=== PATIENT | female | born 1955 | race Caucasian/White ===

== ENCOUNTER 2016-07-15 12:30 | Emergency (ER) | payer OTHER, BC ==
[~2016-07-15] VITALS: Ht 157.5 cm; Wt 72.0 kg
[~2016-07-15 12:30] MED LIST: BIOTCAP PO; CALCCHW25 PO; FERR65TA PO; HYDR-3580 PO; LEVO125T3 PO; OMEP20TA PO; RIVA10 PO; TRAZ100 PO; URSO250T2 PO; VENL-39 PO; VITA10002 PO; Z.0.COMMODE-3:1; Z.0.WALKERFRONT
[2016-07-15 12:32] VITALS: BP 156/76; PULSE 67; RESP 16; TEMP 97.8; O2SAT 98
--- NOTE | 2016-07-15 12:50 | PD ---
HPI Chief Complaint: Fall Time Seen by Provider: 12:49 Travel History International Travel<30 days: No Contact w/Intl Traveler<30days: No Traveled to known affect area: No History of Present Illness HPI 60-year-old female with history of primary biliary cirrhosis presents to emergency department for evaluation of left hip pain. Patient states she tripped and fell over wires in the OR. Landing on her left hip. Patient has history of left hip replacement. States she was able to get herself up after a few minutes. Denies any alterations in sensation. She did not hit her head or lose consciousness. She has no other symptoms to report. PFSH Past Medical History Arthritis: Yes Cancer: No Cardiovascular Problems: No Diabetes: No Endocrine: Yes Genitourinary: No Hepatitis: No Hiatal Hernia: No Immune Disorder: No Musculoskeletal: Yes (arthritis) Neurologic: No Psychiatric: No Respiratory: No Thyroid Disease: Yes (HYPOTHYROID) ?: Not Past Surgical History Abdominal Surgery: Yes (diagnostic laparoscopy) AICD: No Gynecologic Surgery: Yes (tubal ligation) Joint Replacement: No Pacemaker: No Social History Tobacco Use: No Substance Use: No Allergies-Medications (Allergen,Severity, Reaction): Coded Allergies: Ursodiol (Verified Allergy, Severe, rash, 07/15/16) ALLERGIC TO GENERIC FORM OF PRISCILA, BUT TAKES NAME BRAND PRISCILA AT HOME Wellbutrin (Verified Allergy, Intermediate, hives, 07/15/16) Reported Meds & Prescriptions Reported Meds & Active Scripts Active Review of Systems Except as stated in HPI: all other systems reviewed are Neg Physical Exam Narrative GENERAL: Well-nourished, well-developed female patient, ambulatory and in no acute distress SKIN: Warm and dry. HEAD: Normocephalic. EYES: No scleral icterus. No injection or drainage. NECK: Supple, trachea midline. No JVD or lymphadenopathy. CARDIOVASCULAR: Regular rate and rhythm without murmurs, gallops, or rubs. RESPIRATORY: Breath sounds equal bilaterally. No accessory muscle use. MUSCULOSKELETAL: No cyanosis, or edema. No shortening or rotation of the lower extremities. Distal pulses are palpable. No deformities. BACK: Nontender without obvious deformity. No CVA tenderness. Data Data Last Documented VS Vital Signs Date Time Temp Pulse Resp B/P Pulse Ox O2 Delivery O2 Flow Rate FiO2 07/15/16 12:32 97.8 67 16 156/76 98 Room Air Orders Hip, Uni(Ap&Lat) W Ap Pelvis (07/15/16 ) MDM Medical Decision Making Medical Screen Exam Complete: Yes Emergency Medical Condition: Yes Medical Record Reviewed: Yes Differential Diagnosis Dislocation versus contusion versus fracture versus sprain Narrative Course 60-year-old female presents to the emergency department for evaluation of left hip pain following a fall. X-ray imaging is without acute bony abnormality. Patient does not want any pain control this time. She is requesting to take ibuprofen [id number] at home. She is advised to follow-up with her primary care provider and return immediately with any acute worsening of symptoms. Diagnosis Primary Impression: Left hip pain Additional Impressions: Contusion of hip, left Low back strain Qualified Code: S39.012A - Low back strain, initial encounter Referrals: Primary Care Physician Patient Instructions: General Instructions, Hip Contusion (ED) Departure Forms: Tests/Procedures, Work Release Enter return to work date: Jul 16, 2016 Additional Instructions: Ice and rest the affected area Follow-up the primary care provider Seek orthopedic evaluation if symptoms persist Return immediately with any acute worsening of symptoms Med/Other Pt SpecificInfo: Prescription(s) given Disposition: 01 DISCHARGE HOME Condition: Stable Marisol McclureP Jul 15, 2016 12:50
--- NOTE | 2016-07-15 13:13 | RADRPT ---
EXAM DATE/TIME: 07/15/2016 13:12 [place] COMPARISON: HIP LEFT (AP&LAT 2/3VWS) WO AP PELVIS, February 11, 2016, 8:18. INDICATIONS : Left hip pain post fall at work. MEDICAL HISTORY : None. SURGICAL HISTORY : Left total hip in 11/22 ENCOUNTER: Initial ACUITY: 1 day PAIN SCORE: 8/10 LOCATION: Left hip FINDINGS: The bony pelvis is intact. No subluxation of either hip. On the left, there is a bipolar hip arthropl asty that appears normally aligned. No evidence of hardware failure or loosening. Moderate to severe right hip osteoarthritis noted and with chronic cam-type impingement changes. CONCLUSION: 1. Intact pelvis. 2. Radiographic appearance of the left bipolar hip arthroplasty within normal limits. No fracture, vincent bluxation or evidence of hardware failure/loosening. 3. Moderate to severe right hip osteoarthritis. Jarek Mcguire MD on July 15, 2016 at 13:10 Board Certified Radiologist. This report was verified electronically.
== END 2016-07-15 14:08 | disposition home or self-care (01) ==
LOC: NEPB 12:30
DX: M25.552 Pain in left hip (principal); K74.3 Primary biliary cirrhosis; S70.00XA Contusion of unspecified hip, initial encounter; S39.012A Strain of muscle, fascia and tendon of lower back, initial encounter; W18.09XA Striking against other object with subsequent fall, initial encounter
CPT/HCPCS: 73502; 99284

== ENCOUNTER 2018-01-27 09:00 | Inpatient (IN) ==
[2018-02-01] MEDS ORDERED: Metoprolol Tartrate 25 MG Tablet PO ONE (09:00)
[2018-02-01] MEDS ORDERED: Chlorhexidine Gluconate 2% 1 Pack (2 Cloths) TOPICAL ONE (09:00)
[2018-02-01] MEDS ORDERED: Sodium Chlor 0.9% Inj 500 ML IV.CONT ONE (09:00)
[2018-02-01] MEDS ORDERED: Sodium Chlor 0.9% Inj 40 ML, Bupivacaine Liposo PF 1.3% Inj 20 ML P-ARTICULR SCH ×2 (09:15)
[2018-02-01] MEDS ORDERED: Chlorhexidine 4% Topical 120 APPLIC/120 ML Bottle TOPICAL SCH (09:15)
[2018-02-01] MEDS ORDERED: Propofol Inj 500 MG/50 ML Vial ONE (09:47)
[2018-02-01] MEDS ORDERED: fentaNYL Citrate Inj 100 MCG/2 ML Ampul ONE (09:54)
[2018-02-01] MEDS ORDERED: Tetracaine PF 1% Inj 20 MG/2 ML Ampul ONE (09:56)
[2018-02-01] MEDS ORDERED: Bupivacaine/Dextrose 0.75% Inj 2 ML Ampul ONE (09:56)
[2018-02-01] MEDS ORDERED: ceFAZolin 2 GM Premix Inj 2 GM/50 ML PIGGYBACK IV.SIG SCH (10:00)
[2018-02-01] MEDS ORDERED: SODIUM CHLOR 0.9% IV.SIG SCH (10:00)
[2018-02-01] MEDS ORDERED: TRANEXAMIC ACID IV.SIG SCH (10:00)
[2018-02-01] MEDS ORDERED: Vancomycin Inj 1,000 MG in Sodium Chlor 0.9% Inj 250 ML IV.SIG SCH (10:00)
[2018-02-01] MEDS ORDERED: Bupivacaine/Epinephrine Inj 0.25% 50 ML Vial ONE (10:06)
[2018-02-01] MEDS ORDERED: Phenylephrine/NS 1000 MCG/10ML Syringe IV.PUSH ONE (10:42)
[2018-02-01] MEDS ORDERED: Bisacodyl 10 MG Supp RECTAL PRN (12:40)
[2018-02-01] MEDS ORDERED: Temazepam 15 MG Capsule PO PRN (12:40)
[2018-02-01] MEDS ORDERED: Morphine Inj 4 MG/ML Vial IV.PUSH PRN (12:40)
--- NOTE | 2018-02-01 12:40 | P.OP ---
- Preoperative Diagnosis (1) Osteoarthritis of right hip - Postoperative Diagnosis (1) Osteoarthritis of right hip Date of procedure: 02/01/18 Procedure: Right total hip replacement arthroplasty, direct anterior exposure Surgeon: Sonido Bland MD Agent: LEEANNE Sierra Operation and Findings: EBL: 500 cc INDICATION: This patient presents with significant hip pain related to osteoarthritis of the right hip. This patient has had a previous left total hip replacement for the same degenerative condition and has done well.. Despite extensive conservative care this patient continues to be painful and now presents for surgical treatment. NOTE: Gita Sierra PA-C was present for the entire surgical procedure as my machinist first class. In my medical opinion her skill and care was necessary for the proper management of this patient. COMPONENTS: COMPANY: [employer] CUP: [place], 50 mm, sector series, gription surface LINER: Altrx 32 mm, neutral STEM: [place], size 11, standard offset, hydroxyapatite-coated HEAD: 32 mm, ceramics, +5, 12/14 taper PROCEDURE: This patient was brought to the operating room and anesthetized in the supine position and positioned on the fracture table with both legs held extended. The right hip and leg was scrubbed with alcohol followed by Hibiclens followed by ChloraPrep and draped sterilely. Antibiotics were given within routine time window and a timeout was done. A 4 inch incision was made starting 2 cm distal and 2 cm lateral to the anterior superior iliac spine. The fascia jarvis was opened longitudinally. The interval between the fascia jarvis and the rectus was opened down to the capsule of the hip joint. Retractors were positioned allowing good visualization of the capsule. This was opened longitudinally and flaps were created. Stay sutures were utilized. Exposure was excellent. The neck was cut at the proper location using fluoroscopy as a guide. The head was removed. Deep retractors were positioned allowing good visualization of the acetabulum. Acetabulum was deepened down to the floor starting with a proper size reamer and reaming up to 49 mm. A trial was utilized. Fluoroscopy was used to check position and confirmed satisfactory alignment. The rim was reamed with a 50 mm reamer and the final cup was positioned in approximately 20 of anteversion and 40-45 of abduction. Position was satisfactory. A single hole eliminator was positioned followed by the final liner. The lifting hook was utilized. The leg was dropped to the floor, maximally externally rotated and brought across the midline. Retractors were positioned. A box osteotome was utilized followed by progressive broaching to the proper stem size. Trial reduction showed excellent alignment and fit. With 60 of external rotation the leg was dropped to the floor without evidence of anterior subluxation. The wound was irrigated. The final stem was inserted and was found to be very stable. The final reduction using the final head. Stability was as previously noted. Intraoperative x-rays were taken. The wound was irrigated copiously. Hemostasis was controlled. Local anesthesia was utilized. The capsule was repaired with #2 Tycron sutures. The fascia jarvis was repaired with running 0 PDS on a loop. Subcutaneous tissue was approximated with 2-0 Vicryl and skin with running intradermal 3-0 Vicryl followed by Steri-Strips. A sterile dressing was applied. The patient was awakened and taken to the recovery room in satisfactory condition. FINDINGS: There was severe osteoarthritis of the right hip. Periarticular synovitis was also noted. The final solution appeared excellent. There is no complication appreciated
[2018-02-01] MEDS ORDERED: Post-op Orders (for Pharmacy) OTHER STA (13:03)
--- NOTE | 2018-02-01 19:55 | XR ---
EXAM DATE: 02/01/2018 12:00 AM EDT AGE/SEX: 62 years / Female INDICATIONS: placement of total right hip in or. CLINICAL DATA: This is the patient's initial encounter. Patient reports that signs and symptoms have been present for 1 day and indicates a pain score of Nonresponsive. MEDICAL/SURGICAL HISTORY: None. None. COMPARISON: No prior exams available for comparison. FINDINGS: 3 images of the right hip recorded digitally in the operating room using C-arm during total hip arthr oplasty. CONCLUSION: Intraoperative images. Electronically signed by: Jose D Dent MD 02/01/2018 7:54 PM EDT
[2018-02-01] MEDS ORDERED: traZODone 50 MG Tablet PO SCH (21:00)
[2018-02-01] MEDS: Multivitamin/Minerals Therapeutic Tablet PO SCH (21:11)
[2018-02-01] MEDS: Senna/Docusate Sodium 8.6/50 MG Tablet PO SCH (21:11)
--- NOTE | 2018-02-01 22:20 | P.DS ---
Date of admission: 02/01/18 07:51 Primary care physician: Fiorella Colón Attending physician on discharge: Sonido Bland Anticipated date of discharge: 02/02/18 DS: Diagnosis - Discharge Diagnosis (1) Osteoarthritis of right hip Status: Acute DS: Medications - Discharge Medications Prescriptions: aspirin 81 mg PO BID #60 tab hydrocodone-acetaminophen 1 tab PO Q4H PRN #42 tab PRN Reason: Acute Pain DS: Summary Hospital Course: Surgical treatment was performed on the day of admission without complication. The patient recovered well in PACU and was transferred to the orthopedic floor. IV and oral medications were supplied. The patient was compliant with physical therapy and all total hip precautions. After 1 day she was found to be stable and discharged to a ____. She was encouraged to continue physical therapy, to elevate the operative limb and ice it 2-3 times daily, and to pursue a high fiber diet. She was given prescriptions of [place] 7.5mg and ASA 81mg twice daily. - Time Spent with Patient Total time spent providing and/or coordinating discharge services: Greater than 30 minutes - Quality: VTE Deep Vein Thrombosis/Pulmonary Embolism Present on Admission: No Exam Vital signs: Vital Signs 02/01/18 08:40 02/01/18 13:02 02/01/18 13:15 Temperature 98 F 97.3 F L Pulse Rate 59 L 73 62 Respiratory Rate 16 24 22 Blood Pressure 125/77 97/52 L 111/61 Pulse Oximetry 97 100 100 02/01/18 13:30 02/01/18 13:45 02/01/18 14:00 Temperature Pulse Rate 57 L 55 L 53 L Respiratory Rate 22 14 15 Blood Pressure 101/59 L 114/62 106/58 L Pulse Oximetry 100 100 100 02/01/18 14:30 02/01/18 14:45 02/01/18 15:00 Temperature 97.7 F Pulse Rate 56 L 53 L 54 L Respiratory Rate 12 23 18 Blood Pressure 105/59 L 109/59 L 115/57 L Pulse Oximetry 99 99 99 02/01/18 15:30 02/01/18 16:00 02/01/18 16:30 Temperature Pulse Rate 59 L 61 62 Respiratory Rate 18 19 24 Blood Pressure 91/55 L 108/56 L 131/62 Pulse Oximetry 95 99 100 02/01/18 17:59 Temperature Pulse Rate Respiratory Rate 18 Blood Pressure Pulse Oximetry Intake & Output 02/01/18 02/01/18 02/02/18 06:59 18:59 06:59 Intake Total 1840 / 1840 Output Total 1350 / 1350 Balance 490 / 490 Weight 77.6 kg Intake: IV 1550 / 1550 LR 1000 mL Inj 1,000 ML @ 30 1000 / 1000 mls/hr IV.CONT .Q24H ONE Rx#: [id number] Cyklokapron Inj 776 MG In NS 200 / 200 Inj 100 ML @ 200 mls/hr IV.SIG ONCE BIENVENIDO Rx#:[id number] Vancomycin Inj 1,000 MG In NS 250 / 250 Inj 250 ML @ 250 mls/hr IV.SIG TIME MOTION ANALYST BI[facility] Rx#:[id number] Ancef Inj 1,000 MG In NS Inj 100 / 100 100 ML @ 200 mls/hr IV.SIG Q6H [facility] Rx#:[id number] Oral 240 / 240 Anesthesia Amount 50 / 50 Output: Urine 1000 / 1000 Estimated Blood Loss 350 / 350 Other: # Voids 0 Date of Last Bowel Movement 01/31/18 Weight On Admission 77.6 kg Results Labs on day of discharge: Labs from last 24 hours 02/01/18 08:50 Blood Type A Positive Antibody Screen Negative MTS Gel Crossmatch See Detail - Impressions ITS Impressions Hip X-Ray 02/01/18 00:00 CONCLUSION: Intraoperative images. Discharge Plan - Discharge Disposition Patient Disposition: W/Home Health Service - Discharge Condition Condition: Good - Physicians Team Primary Care Provider: Fiorella Colón Attending Provider: Sonido Bland Other Providers: [facility],Agency - Rxs /Orders / Referrals /Forms Prescriptions: New aspirin 81 mg Tablet,Chewable 81 mg PO BID Qty: 60 RF: 0 hydrocodone-acetaminophen 7.5-325 mg Tablet 1 tab PO Q4H PRN (Reason: Acute Pain) Qty: 42 RF: 0 Continue amlodipine 5 mg Tablet 5 mg PO DAILY calcium carbonate-vitamin D3 [Calcium 600 + D(3)] 600 mg calcium- 200 unit Capsule 1,200 mg PO BID levothyroxine 125 mcg Tablet 125 mcg PO DAILY omeprazole 20 mg Tablet,Delayed Release (Dr/Ec) 20 mg PO DAILY trazodone 150 mg Tablet 150 mg PO HS venlafaxine 37.5 mg Capsule,Extended Release 24hr 37.5 mg PO DAILY Ambulatory Orders / Order Sets / DME: Adjustable Commode 3-in-1 (1 each) (Routine) Location: Determined by Patient Ordered By: Sonido Bland Walker With Front Wheels (1 each) (Routine) Location: Determined by Patient Ordered By: Sonido Bland Referrals: Fiorella Colón, [Primary Care Provider] - See Instructions - Discharge Instructions Patient Printed Instructions: How to Choose and Use a Walker (GEN), Pain Management After Surgery (DC), Precautions after Total Joint Replacement Surgery (DC), Total Hip Replacement (DC) Additional Instructions: REGULAR DIET TOLERATED SHOWER ONLY NO DRIVING FULL WEIGHT BEARING TOLERATED KEEP DRESSING CLEAN, DRY, AND INTACT DO NOT CHANGE DRESSING TAKE MEDICATION PRESCRIBED FOLLOW UP WITH MD INSTRUCTED - Post Discharge Care Plan Care Plan Goals: Discharge Care Plan Goals for Right Total Hip Replacement (anterior) You had a hip replacement surgery. This means your natural hip was replaced with an artificial joint (prosthesis). You may be recovering at home or in a rehabilitation facility. Either way, you must take care of your new hip. Here are some goals to help you heal well. Directions to Meet your Goals: 1. Activity & Exercises: * Take pain medicine as directed by your doctor. * Dont drive until your doctor says its OK. And never drive while taking opioid pain medicine. * Wear the support stockings you were given in the hospital as directed by your surgeon. * Dont sit for more than 30 to 45 minutes at one time. * Dont lean forward while sitting. * Dont cross your legs. * Keep your feet flat on the floor. Dont turn your foot or leg inward. This stresses your hip joint. * Use an elevated toilet seat for 6 weeks after surgery. * Nap if you are tired, but dont stay in bed all day. * Sit on a firm cushion when you ride in a car and avoid sitting too low. Try not to bend your hip too much when getting in and out of the car. 2. Prevent Falls/Injury: * Follow your doctors orders regarding how much weight to put on the affected leg. * Dont bend at the hip when you bend over. Don't bend at the waist to put on socks and shoes. And avoid picking up items from the floor. * Use a cane, crutches, a walker, or handrails until your balance, flexibility, and strength improve. And remember to ask for help from others when you need it. * Free up your hands so that you can use them to keep balance. Use a aminta pack , apron, or pockets to carry things. * Arrange your household to keep the items you need handy. Keep everything else out of the way. * Remove items that may cause you to fall, such as throw rugs and electrical cords. * Use nonslip bath mats, grab bars, an elevated toilet seat, and a shower chair in your bathroom * Sit on a shower stool or chair when you shower to keep from falling. 3. Precautions: * Prevent infection. Any infection will need to be treated immediately. Call your doctor right away if you think you might have an infection. * Tell your dentist that you have an artificial joint and take antibiotics as prescribed before any dental work. * Tell all your healthcare providers about your artificial joint before any medical procedure. * Maintain a healthy weight. Get help to lose any extra pounds. Added body weight puts stress on the joints. 4. Incision Care: * Prevent infection by washing your hands often. If an infection occurs, it will need to be treated right away. * Call your doctor right away if you think you may have an infection. Symptoms include a fever or an incision that leaks white, green, or yellow fluid. * Don't soak your incision in water until your doctor says its OK. This means no hot tubs, bathtubs, or swimming pools. * Follow your doctor's instructions for changing the dressing. Do not change the dressing until your first postoperative visit unless it becomes saturated. If that occurs you can change the dressing daily. * Dont rub the incision, or apply creams or lotions to it. * If you notice any redness or drainage around the bandage site, contact your surgeon's office immediately. 5. Follow-Up: Do Not miss your follow-up appointment. Keep up with all your appointments and yearly check ups When to call your doctor: Call your doctor right away if you have: Hip pain gets worse Pain or swelling in your calf or leg not related to your incision Tenderness or redness in your calf Fever of 100.4F (38C) or higher, or as directed by your healthcare provider Shaking chills Swelling or redness at the incision site gets worse Fluid draining from the incision Call 911: Call 911 right away if you have: Chest pain Shortness of breath Any pain or tenderness in your calf
--- NOTE | 2018-02-01 22:23 | P.DCO ---
- Physical Therapy Physical Therapy: Safety evaluation Hip: Total hip, Protocol: Right, Progress to weight bearing Right Lower Extremity Weight Bearing: Weight bearing as tolerated Additional instructions: PT 4 days/wk for 2 weeks. WBAT Right LE. Anterior R PORTILLO precautions. Gait training / strengthening. - Nursing RN days per week: 2 x week(s): 1 Nursing: Dressing changes Dressing changes: Do not change dressing Additional instructions: Vitals assessment. DO not change dressing unless saturated or erythema. - Certification Need for Home Health services: I have seen patient Altagracia Kelley on 02/01/18. My clinical findings support the need for the requested home health care services because: Need for Home Health Services: High risk of falls Homebound Certification: I certify that my clinical findings support that this patient is homebound because: Homebound Certification: Post-op weakness, Unsteady gait/balance
[2018-02-02] MEDS ORDERED: Levothyroxine 125 MCG Tablet PO SCH (06:00)
[2018-02-02 07:13] LABS: Hematocrit 31.7 % (35.0-46.0); Hemoglobin 10.7 gm/dL (11.6-15.3)
[2018-02-02] MEDS ORDERED: Venlafaxine XR 37.5 MG Capsule PO SCH (09:00)
[2018-02-02] MEDS ORDERED: amLODIPine 5 MG Tablet PO SCH (09:00)
[2018-02-02] MEDS ORDERED: Pantoprazole Sodium 20 MG DR Tablet PO SCH (09:00)
[2018-02-02] MEDS: Multivitamin/Minerals Therapeutic Tablet PO SCH (09:42)
[2018-02-02] MEDS: Senna/Docusate Sodium 8.6/50 MG Tablet PO SCH (09:43)
--- NOTE | 2018-02-02 12:56 | P.PNOP ---
Subjective Interval history: Pain moderately controlled right hip. Taking PO meds intermittently as they make her 'very sleepy'. No new leg pain. No CP or SOB. Prefers discharge home. Physical Exam Vital signs: Vital Signs 02/01/18 13:02 02/01/18 13:15 02/01/18 13:30 Temperature 97.3 F L Pulse Rate 73 62 57 L Respiratory Rate 24 22 22 Blood Pressure 97/52 L 111/61 101/59 L Pulse Oximetry 100 100 100 02/01/18 13:45 02/01/18 14:00 02/01/18 14:30 Temperature Pulse Rate 55 L 53 L 56 L Respiratory Rate 14 15 12 Blood Pressure 114/62 106/58 L 105/59 L Pulse Oximetry 100 100 99 02/01/18 14:45 02/01/18 15:00 02/01/18 15:30 Temperature 97.7 F Pulse Rate 53 L 54 L 59 L Respiratory Rate 23 18 18 Blood Pressure 109/59 L 115/57 L 91/55 L Pulse Oximetry 99 99 95 02/01/18 16:00 02/01/18 16:30 02/01/18 17:59 Temperature Pulse Rate 61 62 Respiratory Rate 19 24 18 Blood Pressure 108/56 L 131/62 Pulse Oximetry 99 100 02/01/18 20:00 02/02/18 00:00 02/02/18 02:07 Temperature 98.3 F 99.3 F Pulse Rate 71 72 Respiratory Rate 20 20 18 Blood Pressure 151/63 H 120/56 L Pulse Oximetry 98 95 02/02/18 04:00 02/02/18 08:00 Temperature 99.2 F 98.8 F Pulse Rate 73 65 Respiratory Rate 20 16 Blood Pressure 118/57 L 110/53 L Pulse Oximetry 94 L 93 L Intake & Output 02/01/18 02/02/18 02/02/18 18:59 06:59 18:59 Intake Total 1840 / 1840 1650 / 1650 Output Total 1350 / 1350 Balance 490 / 490 1650 / 1650 Weight 77.6 kg 81.1 kg Intake: IV 1550 / 1550 1200 / 1200 LR 1000 mL Inj 1,000 ML @ 80 1000 / 1000 1000 / 1000 mls/hr IV.CONT .[id number] [facility] Rx# :[id number] Cyklokapron Inj 776 MG In NS 200 / 200 Inj 100 ML @ 200 mls/hr IV.SIG ONCE BIENVENIDO Rx#:[id number] Vancomycin Inj 1,000 MG In NS 250 / 250 Inj 250 ML @ 250 mls/hr IV.SIG PROPERTY FIELD INSPECTOR BIENVENIDO Rx#:[id number] Ancef Inj 1,000 MG In NS Inj 100 / 100 200 / 200 100 ML @ 200 mls/hr IV.SIG Q6H [facility] Rx#:[id number] Oral 240 / 240 450 / 450 Anesthesia Amount 50 / 50 Output: Urine 1000 / 1000 Estimated Blood Loss 350 / 350 Other: # Voids 0 2 Date of Last Bowel Movement 01/31/18 01/31/18 01/31/18 Weight On Admission 77.6 kg Narrative: Laying in bed NAD VSS RLE Hip dressing c/d/i, mild swelling and warmth, no increased drainage +motor at distal, +sens, +nvi Neg homans distal - Constitutional no acute distress Results - Labs CBC & Chem 7: 02/02/18 06:51 Laboratory Results - last 24 hr 02/02/18 06:51 Hgb 10.7 L Hct 31.7 L - Imaging Impressions Hip X-Ray 02/01/18 00:00 CONCLUSION: Intraoperative images. - Procedures R PORTILLO, anterior Assessment and Plan - Ortho Post Op Day # 1 - Assessment and Plan pod#1 s/p R PORTILLO, anterior Doing well. Pain moderately controlled though she does not like how the meds make her feel. Ok to d/c home w [facility] today after PT. PO pain meds as needed. ASA 81mg PT - WBAT RLE. Anterior PORTILLO precautions. Hold dressing changes unless saturated. F/U in 2 weeks as scheduled.
[2018-02-02 13:10] VITALS: RESP 18
[2018-02-02 13:23] VITALS: BP 149/67; PULSE 68; TEMP 99.7; O2SAT 97
== END 2018-02-02 17:54 | disposition home health service (06) ==
LOC: HSDI 02-01 07:51 → N06 02-01 17:00
PROVIDERS: ADMIT Orthopaedic Surgery Orthopaedic Surgery of the Spine; ATTEND Orthopaedic Surgery Orthopaedic Surgery of the Spine